=== PATIENT | male | born 1985 | race Two or more races ===

== ENCOUNTER 2018-06-11 21:07 | Emergency (ER) | payer OTHER ==
[~2018-06-11] VITALS: Ht 137.2 cm; Wt 65.8 kg
[2018-06-11 21:20] VITALS: BP 143/85
--- NOTE | 2018-06-11 21:20 | NUR ---
ED Nurse Note: Patient walk in c/o workers comp for laceration to right index finger at 2029. pt complaining of 10/10 pain. ermd on bedside. during the suturing. will continue to monitor.
[2018-06-11] MEDS ORDERED: Bupivacaine 0.5% Inj 30 ml vial INJ ONE ×2 (21:22→21:30)
[2018-06-11] MEDS ORDERED: Bacitracin Oint UD TOPIC ONE (21:30)
--- NOTE | 2018-06-11 21:36 | Emergency Room Report ---
History of Present Illness General Chief Complaint: Laceration Source: Patient Present Illness HPI Patient is a 33-year-old male brought in by self after increased pain to the right index finger. Patient is right-hand dominant. 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 Allergies: Coded Allergies: No Known Allergies (Unverified , 06/11/18) Patient History Past Medical History: see triage record Reviewed Nursing Documentation: PMH: Agreed; PSxH: Agreed Nursing Documentation-PMH Past Medical History: No Stated History Review of Systems All Other Systems: negative except mentioned in HPI Physical Exam Vital Signs Date Time Temp Pulse Resp B/P (MAP) Pulse Ox O2 Delivery O2 Flow Rate FiO2 06/11/18 21:11 98.1 60 16 143/85 96 Room Air Sp02 EP Interpretation: reviewed, normal General Appearance: normal inspection, well appearing, no apparent distress, alert, GCS 15 Head: atraumatic ENT: normal ENT inspection, hearing grossly normal, normal voice Neck: normal inspection, full range of motion, supple, no bony tend Respiratory: normal inspection, lungs clear, normal breath sounds, no respiratory distress, no retraction, no wheezing Cardiovascular #1: regular rate, rhythm, no edema Gastrointestinal: normal inspection, normal bowel sounds, non tender, soft, no guarding, no hernia Genitourinary: no CVA tenderness Musculoskeletal: normal inspection, back normal, normal range of motion Neurologic: normal inspection, alert, responsive, speech normal Psychiatric: normal inspection, judgement/insight normal, mood/affect normal Skin: laceration - 2cm flap Procedures Laceration/Wound Repair Laceration/Wound Repair : Consent: Verbal Wound's Depth, Shape: superficial Wound Length (cm): 2 Wound Explored: clean Irrigated w/ Saline (ccs): 20 Anesthesia: 0.5% Sensorcaine Volume Anesthetic (ccs): 3 Wound Debrided: minimal Wound Repaired With: sutures Number of Sutures: 3 Patient Tolerated: Well Progress vasovagal episode during anesthesia. Resolved spontaneously Medical Decision Making Diagnostic Impression: Primary Impression: Laceration ER Course Patient presented for laceration. Differential diagnoses included foreign body , nerve injury, arterial injury among others. Patient has a benign exam and does not appear to require any further imaging or laboratory testing at this time. Patient was noted to have finger laceration. Patient was noted to have a flap laceration which was sutured. Patient had a near vasovagal episode related to anesthetic injection. Patient was observed and subsequently improved. Patient will be discharged home. Patient was to have more patient was to have wound rechecked with workers comp physician in 3 days. Suture removal in 10-14 days Last Vital Signs Date Time Temp Pulse Resp B/P (MAP) Pulse Ox O2 Delivery O2 Flow Rate FiO2 06/11/18 21:11 98.1 60 16 143/85 96 Room Air Scripts Ibuprofen* (MOTRIN*) 600 Mg Tablet 600 MG ORAL Q8H PRN for For Pain, #30 TAB 0 Refills Prov: Rios Swanson MD 06/11/18 Cephalexin* (KEFLEX*) 500 Mg Capsule 500 MG ORAL EVERY 6 HOURS, #28 CAP Prov: Rios Swanson MD 06/11/18 Rios Swanson MD Jun 11, 2018 21:36
[2018-06-11] MEDS ORDERED: CEPHALEXIN500 MG ORAL (21:50)
[2018-06-11] MEDS ORDERED: IBUPROFEN600 MG ORAL (21:50)
[2018-06-11 22:15] VITALS: BP 143/85
--- NOTE | 2018-06-11 22:15 | NUR ---
ED Nurse Note: Patient cleared cleared for discharge per ERMD. AO4. NAD. VSS. Laceration cleaned and dressed. Patient given discharge instructions; verbalized understanding. ID removed. Patient ambulated steady out of ED with all belongings.
== END 2018-06-11 22:15 | disposition home or self-care (01) ==
LOC: EMR 21:26
DX: S61.210A Laceration without foreign body of right index finger without damage to nail, initial encounter (principal); W27.4XXA Contact with kitchen utensil, initial encounter; Y92.511 Restaurant or cafe as the place of occurrence of the external cause; Y99.0 Civilian activity done for income or pay
CPT/HCPCS: 12001; 99283; J3490

== ENCOUNTER 2018-06-17 08:46 | Emergency (ER) | payer OTHER ==
[~2018-06-17] VITALS: Ht 134.6 cm; Wt 56.7 kg
[~2018-06-17 08:46] MED LIST: CEPHALEXIN500 MG ORAL; IBUPROFEN600 MG ORAL
--- NOTE | 2018-06-17 08:55 | NUR ---
ED Nurse Note: patient walked in by him self with steady gait, for check up his sutures on his right pointing finger. AAO x4, skin is dry, intact. VSS at this time.
[2018-06-17 09:00] VITALS: BP_SYST 130; BP_SYST 136; BP_DIAS 81
--- NOTE | 2018-06-17 09:08 | Emergency Room Report ---
History of Present Illness General Chief Complaint: Wound Recheck/Suture Removal Source: Patient Present Illness HPI Patient presents emergency department today complaining of wound check. Patient apparently cut his right index finger on Sunday of last week. He has not been at work. He returns today for evaluation. Wound appears be healing. Patient is taking his antibiotics. No other complaints were noted. Patient states that it will be helpful if he could have a splint on his right finger.No other modifying factors. No other associated signs and symptoms. No other complaints were noted. Allergies: Coded Allergies: No Known Allergies (Unverified , 06/17/18) Patient History Past Medical History: none Past Surgical History: none Pertinent Family History: none Social History: Denies: smoking, alcohol use, drug use Reviewed Nursing Documentation: PMH: Agreed; PSxH: Agreed Nursing Documentation-PMH Past Medical History: No Stated History Review of Systems All Other Systems: negative except mentioned in HPI Physical Exam Vital Signs Date Time Temp Pulse Resp B/P (MAP) Pulse Ox O2 Delivery O2 Flow Rate FiO2 06/17/18 08:49 98.2 67 12 136/81 98 Room Air Sp02 EP Interpretation: reviewed, normal General Appearance: normal inspection, well appearing, no apparent distress, alert Head: atraumatic Eyes: bilateral eye normal inspection ENT: normal ENT inspection, hearing grossly normal, normal voice Neck: normal inspection Respiratory: no respiratory distress Cardiovascular #1: no edema Musculoskeletal: back normal, normal range of motion, other - Right index finger laceration healing. Sutures in place Neurologic: normal inspection, alert, responsive, speech normal Psychiatric: normal inspection, judgement/insight normal, mood/affect normal Skin: other - Right index laceration wound healing Procedures Splinting Splinting : Consent: Verbal Location: Right index finger Pre-Made Type: metal Splint: Finger Pre-Proc Neuro Vasc Exam: normal Post-Proc Neuro Vasc Exam: normal Patient Tolerated: Well Complications: None Medical Decision Making Diagnostic Impression: Primary Impression: Encounter for wound re-check ER Course Patient presents emergency department today complaining of lacerations right index finger. Evaluation shows a wound is healing. However sutures are not ready to come out at this time. Recommend return evaluation in 3-4 days. Patient requested a splint. A splint was applied to patient's right index finger.Patient is advised to follow up with primary doctor in 2-3 days and return the emergency room for any worsening symptoms and as needed. Last Vital Signs Date Time Temp Pulse Resp B/P (MAP) Pulse Ox O2 Delivery O2 Flow Rate FiO2 06/17/18 08:49 98.2 67 12 136/81 98 Room Air Status: improved Disposition: HOME, SELF-CARE Condition: Stable Departure Forms: Return to Work Return to Work Date: Jun 17, 2018 Other Restrictions: no use of right hand until June 21 Patient Instructions: Wound Check Shivam Troncoso MD Jun 17, 2018 09:08
[2018-06-17 09:09] VITALS: BP 130/81
--- NOTE | 2018-06-17 09:14 | NUR ---
ED Nurse Note: Pt cleared by health care Provider for discharge. ERMD evaluated sutures. DC instructions was given and explained to pt and verbalized understanding of teachings. All medical deviecs such as ID band removed. Pt is AAO x4, ambulatory and left with all personal belongings.
== END 2018-06-17 09:00 | disposition home or self-care (01) ==
LOC: EMR 09:00
DX: S61.210D Laceration without foreign body of right index finger without damage to nail, subsequent encounter (principal); X58.XXXD Exposure to other specified factors, subsequent encounter; Z48.01 Encounter for change or removal of surgical wound dressing
CPT/HCPCS: 29130; 99283

== ENCOUNTER 2018-06-21 08:35 | Emergency (ER) | payer OTHER ==
[~2018-06-21] VITALS: Ht 132.1 cm; Wt 65.8 kg
--- NOTE | 2018-06-21 08:55 | Emergency Room Report ---
History of Present Illness General Chief Complaint: Wound Recheck/Suture Removal Source: Patient Present Illness [facility] This patient presents for suture removal. The patient suffered a finger laceration 10 days ago. He is requesting suture removal. He has no other complaints. Allergies: Coded Allergies: No Known Allergies (Unverified , 06/17/18) Patient History Past Medical History: none Social History: Denies: smoking, alcohol use, drug use Reviewed Nursing Documentation: PMH: Agreed; PSxH: Agreed Nursing Documentation-PMH Past Medical History: No Stated History Review of Systems All Other Systems: negative except mentioned in HPI Physical Exam Vital Signs Date Time Temp Pulse Resp B/P (MAP) Pulse Ox O2 Delivery O2 Flow Rate FiO2 06/21/18 08:41 98.2 64 16 116/75 99 Room Air Sp02 EP Interpretation: reviewed, normal General Appearance: no apparent distress, alert, GCS 15, non-toxic Head: normocephalic, atraumatic Eyes: bilateral eye normal inspection ENT: hearing grossly normal, normal pharynx, no angioedema, normal voice Neck: full range of motion, supple/symm/no masses Respiratory: no respiratory distress, no retraction, no accessory muscle use, speaking full sentences Rectal: deferred Musculoskeletal: gait/station normal, normal range of motion, non-tender, other - FROM and 5/5 MS throughout R. index finger, flexion/extension at all IP joints intact. Neurologic: alert, oriented x3, responsive, motor strength/tone normal, sensory intact, speech normal Psychiatric: judgement/insight normal, memory normal, mood/affect normal, no suicidal/homicidal ideation Skin: normal color, no rash, warm/dry, well hydrated, other - Healed laceration on R. distal index finger. Healing, no swelling, erythema or e/o infection. Lymphatic: no adenopathy Medical Decision Making Diagnostic Impression: Primary Impression: Encounter for removal of sutures ER Course This patient presents for suture removal. The sutures were removed without complication or incident. The wound is healing well without evidence of infection. The patient is given close return precautions and follow-up instructions. Last Vital Signs Date Time Temp Pulse Resp B/P (MAP) Pulse Ox O2 Delivery O2 Flow Rate FiO2 06/21/18 08:41 98.2 64 16 116/75 99 Room Air Status: improved Disposition: HOME, SELF-CARE Condition: Improved Khadijah Meyer DO Jun 21, 2018 08:55
[2018-06-21 08:58] VITALS: BP 116/75
--- NOTE | 2018-06-21 08:59 | NUR ---
ED Nurse Note: pt walked in to ED for suture removal on right 2nd digit finger. no sign of infection noted. AAO x4. respirations even and non-labored noted.
--- NOTE | 2018-06-21 09:01 | NUR ---
ER DISCHARGE NOTE: Patient is cleared to be discharged per ERMD, pt is aox4, on room air, with stable vital signs. pt was given dc instructions, pt was able to verbalize understanding, pt id band removed. pt is able to ambulate with steady gait. pt took all belongings.
[2018-06-21 09:02] VITALS: BP 116/75
== END 2018-06-21 09:10 | disposition home or self-care (01) ==
LOC: EMR 08:52
DX: Z48.02 Encounter for removal of sutures (principal)
CPT/HCPCS: 99282